=== PATIENT | male | born 1970 | race African-American/Black ===

== ENCOUNTER 2019-08-29 18:56 | Emergency (ER) | payer OTHER ==
[~2019-08-29] VITALS: Ht 180.3 cm; Wt 142.9 kg
[2019-08-29] MEDS ORDERED: Morphine Sulfate 4mg/ml Inj (IV USE ONLY) IVP ONE (20:00)
[2019-08-29] MEDS ORDERED: Omnipaque-300 100ml vial INJ PRN (20:00)
[2019-08-29 20:18] VITALS: BP 160/100
[2019-08-29 20:51] LABS: BASOPHILS % (AUTO) 0.6 % (0.0-2.0); EOSINOPHILS % (AUTO) 1.5 % (0.0-3.0); HEMATOCRIT 40.6 % (42.0-52.0); HEMOGLOBIN 14.1 G/DL (14.2-18.0); LYMPHOCYTES % (AUTO) 13.1 % (20.0-45.0); MEAN CORPUSCULAR VOLUME 83 FL (80-99); MONOCYTES % (AUTO) 11.5 % (1.0-10.0); NEUTROPHILS % (AUTO) 73.3 % (45.0-75.0); PLATELET COUNT 282 K/UL (150-450); RED BLOOD COUNT 4.91 M/UL (4.70-6.10); RED CELL DISTRIBUTION WIDTH 11.2 % (11.6-14.8)
[2019-08-29] MEDS ORDERED: Piperacillin/Tazobactam 3.375 GM in NS 110 ML IVPB ONE (21:00)
[2019-08-29 21:04] LABS: INR 0.9 (0.9-1.1)
[2019-08-29 21:05] LABS: ANION GAP 10 mmol/L (5-15); BLOOD UREA NITROGEN 12 mg/dL (7-18); CALCIUM 9.1 MG/DL (8.5-10.1); CARBON DIOXIDE 29 MMOL/L (21-32); CHLORIDE 102 MMOL/L (98-107); POTASSIUM 3.3 MMOL/L (3.5-5.1); SODIUM 141 MMOL/L (136-145)
[2019-08-29 21:15] LABS: ALANINE AMINOTRANSFERASE 29 U/L (12-78); ALBUMIN 3.8 G/DL (3.4-5.0); ALBUMIN/GLOBULIN RATIO 1.1 (1.0-2.7); ALKALINE PHOSPHATASE 64 U/L (46-116); ASPARTATE AMINO TRANSFERASE 17 U/L (15-37); BILIRUBIN,TOTAL 1.2 MG/DL (0.2-1.0)
[2019-08-29] MEDS ORDERED: LORazepam Inj 2mg/ml 1ml IV ONE (21:15)
[2019-08-29 21:21] LABS: BILIRUBIN,DIRECT 0.3 MG/DL (0.0-0.3)
--- NOTE | 2019-08-29 21:44 | Emergency Room Report ---
History of Present Illness General Chief Complaint: General Complaint Source: Patient (Harshad Tay MD) Present Illness HPI 49-year-old male presents ED for evaluation. Brought in by EMS from street. States he is having pain to his scrotal area and his legs. States that it is infected. States he has had a previous infection there. Patient is a poor historian. Unable to tell me how long he has had the pain there. Denies fevers or chills. States he has had a prior surgery to his scrotum. Pain is a 10 out of 10, sharp, nonradiating. No other aggravating relieving factors. Denies any other associated symptoms (Harshad Tay MD) Allergies: Coded Allergies: No Known Allergies (Unverified , 08/29/19) Patient History Past Medical History: DM, HTN, asthma, COPD Pertinent Family History: none Social History: Denies: smoking, alcohol use, drug use Immunizations: UTD Reviewed Nursing Documentation: PMH: Agreed; PSxH: Agreed (Harshad Tay MD) Nursing Documentation-PMH Past Medical History: No History, Except For Hx Hypertension: Yes Hx Asthma: Yes Hx COPD: Yes Hx Diabetes: Yes (Harshad Tay MD) Review of Systems All Other Systems: negative except mentioned in HPI (Harshad Tay MD) Physical Exam Vital Signs Date Time Temp Pulse Resp B/P (MAP) Pulse Ox O2 Delivery O2 Flow Rate FiO2 08/29/19 18:44 99.1 92 17 160/100 (120) 98 Room Air Sp02 EP Interpretation: reviewed, normal General Appearance: no apparent distress, alert, GCS 15, non-toxic, obese Head: normocephalic Eyes: bilateral eye normal inspection, bilateral eye PERRL ENT: normal ENT inspection Neck: normal inspection Respiratory: chest non-tender, lungs clear, normal breath sounds, speaking full sentences Cardiovascular #1: regular rate, rhythm, no edema Gastrointestinal: normal bowel sounds, non tender, soft, non-distended, no guarding, no rebound Rectal: deferred Genitourinary: other - scrotal tenderness, erythema Musculoskeletal: back normal, normal range of motion, gait/station normal, non- tender Neurologic: alert, motor strength/tone normal, oriented x3, sensory intact, responsive, speech normal Psychiatric: normal inspection Skin: other - erythema/induration to bialteral Lower extremities Lymphatic: normal inspection (Harshad Tay MD) Medical Decision Making ER Course Notified about mass in testicle Fax sent to hospital, patient was transferred to (Jhoan Hamilton MD) Last Vital Signs Date Time Temp Pulse Resp B/P (MAP) Pulse Ox O2 Delivery O2 Flow Rate FiO2 08/29/19 20:18 99.1 88 17 160/100 98 Room Air (Harshad Tay MD) Referrals: [facility] (PCP) Harshad Tay MD Aug 29, 2019 21:44 Jhoan Hamilton MD Aug 30, 2019 17:34
--- NOTE | 2019-08-29 21:53 | Diagnostic Imaging Report ---
Indications: Lateral testicular pain Technique: Grayscale and duplex images of the scrotum Comparison: Findings:The right testicle measures 3.9cm in length. It demonstrates normal echogenicity overall. However, there is a 5 mm hypoechoic area within the upper pole of the testicular parenchyma. Normal Doppler flow. Normal epididymis. There is a right-sided varicocele demonstrated. The left testicle measures 3.8 cm in length. It demonstrates normal echogenicity except for a few small calcifications and normal Doppler flow. Normal epididymis. . Is a large left varicocele. There is a small hydrocele Impression: 5 mm hypoechoic area within the upper pole of the right testicle. This is nonspecific, could represent a small focus of inflammation or neoplasm. Short interval follow-up sonography recommended. This finding was not described on the [facility] preliminary report, was phoned to Dr. Hamilton in the emergency room at the time of interpretation No acute abnormality Bilateral varicoceles Left hydrocele Nonsignificant calcifications in the left testicle Remaining findings are in agreement with the [facility] preliminary report
[2019-08-29 22:20] VITALS: BP 132/98
--- NOTE | 2019-08-29 23:11 | Diagnostic Imaging Report ---
Clinical Indication: Abdominal pain and scrotal pain Technique: No oral contrast utilized, per emergency room physician request IV administration nonionic contrast. Venous phase spiral acquisition obtained through the abdomen and pelvis. Multiplanar reconstructions were generated. Total dose length product 2937 mGycm. CTDIvol(s) 74 mGy. Dose reduction achieved using automated exposure control Comparison: none Findings: There is some image degradation due to motion artifact. What is apparently a very long venous stent extends from the left common femoral vein through the entirety of the left iliac venous system and into the inferior vena cava extending just above the renal vein orifices. This actually extends through an inferior vena cava filter. Inferior vena cava filter struts all extend well beyond the boundaries of the inferior vena cava, with one strut extending into the abdominal aorta. The inferior vena cava below the renal veins is markedly narrowed, and patency is indeterminate due to the presence of the stent Numerous enlarged veins are seen in the abdominal wall, presumably collateral channels related to chronic pelvic and inferior vena cava venous insufficiency. The appendix is normal. No evidence of colonic diverticulosis or diverticulitis. No small bowel distention. No free or loculated intraperitoneal gas or fluid is evident. The distal esophagus, stomach, duodenum are unremarkable. There is fat-containing umbilical hernia. This demonstrates stranding of the contained fat The liver, gallbladder, bile ducts, pancreas, spleen, adrenals, left kidney are unremarkable. The right kidney demonstrates multiple cysts. No renal or ureteral calculi, hydronephrosis, or hydroureter. No pelvic mass or adenopathy. There is evidence of a bilateral scrotal varicoceles. The bladder is distended The included lung bases demonstrate some groundglass opacity, probably mostly artifactual due to breathing artifact. The bones demonstrate a sclerotic focus in the right iliac bone, probably a bone island.. Impression: Long venous stent extending from left common femoral vein to the suprarenal inferior vena cava. Inferior vena cava filter with evidence of stress-induced extending well beyond the confines of the inferior vena cava including one into the aortic lumen. There is narrowing, likely chronic, of the inferior vena cava. Extensive abdominal wall collateral vessels, presumably related to the above. Umbilical hernia, containing only fat. Stranding of the fat within the hernia noted, the possibility of strangulation should be considered although is deemed unlikely No definite acute abnormality. Distended bladder Bilateral scrotal varicoceles This essentially agrees with the preliminary interpretation provided overnight by [facility]erad[facility] service, with some additional findings. The CT scanner at [facility] is accredited by the [employer] and the scans are performed using protocols designed to limit radiation exposure to as low as reasonably achievable to attain images of sufficient resolution adequate for diagnostic evaluation.
[2019-08-29 23:20] VITALS: BP 130/98
== END 2019-08-29 23:30 | disposition short-term general hospital (02) ==
LOC: EDBD 18:56 → EMR 21:21
DX: N50.9 Disorder of male genital organs, unspecified (principal); E11.9 Type 2 diabetes mellitus without complications; I10 Essential (primary) hypertension; J44.9 Chronic obstructive pulmonary disease, unspecified; E66.9 Obesity, unspecified; Z68.41 Body mass index [BMI] 40.0-44.9, adult
CPT/HCPCS: 36415; 74177; 76870; 80053; 82248; 82962; 83605; 83690; 85025; 85610; 85730; 86850; 86900; 86901; 87040; 96365; 96375; J2270; J2543; Q9967; Z7502; 99285

== ENCOUNTER 2019-09-11 23:28 | Emergency (ER) | payer OTHER ==
[~2019-09-11] VITALS: Ht 180.3 cm; Wt 142.9 kg
--- NOTE | 2019-09-11 23:29 | NUR ---
ED Nurse Note: Patient was BIBA RA 39 due to left leg pain 8/10 radiating to the knee and right leg pain 4/10. Pt VSS, NAD, denies SOB. Will continue to monitor patient.
--- NOTE | 2019-09-12 00:40 | NUR ---
Note gabe in EDM - 09/12/19 at 0059 by [email or web address] ED Nurse Note: XR at bedside with cath lab radiology technician.
--- NOTE | 2019-09-12 00:55 | NUR ---
ED Nurse Note: Patient is asleep. VSS, NAD. Will continue to monitor patient.
--- NOTE | 2019-09-12 00:59 | NUR ---
ED Nurse Note: XR at bedside with sheetmetal trades worker.
--- NOTE | 2019-09-12 01:31 | NUR ---
ED Nurse Note: ERMD at bedside.
--- NOTE | 2019-09-12 01:36 | Diagnostic Imaging Report ---
Indication: Left foot pain Technique: 3 views left foot Comparison: None Findings: There is hammertoe deformities second through fifth digits. No acute fractures. No dislocations. Joint spaces are preserved. Impression: No acute bony trauma This agrees with the preliminary interpretation provided overnight by [facility] service.
[2019-09-12] MEDS ORDERED: Furosemide 40mg tab ORAL ONE (01:45)
[2019-09-12 01:52] VITALS: BP 128/78
[2019-09-12] MEDS ORDERED: FUROSEMIDE40 MG ORAL (01:55)
--- NOTE | 2019-09-12 01:55 | Emergency Room Report ---
History of Present Illness General Chief Complaint: Lower Extremity Injury Source: Patient Present Illness HPI 49-year-old male history of COPD, presents with bilateral lower extremity swelling x1 week, patient during the interview falls back asleep, when patient is awake he states that he also has foot pain denies any aggravating leaving factors severity is mild, intermittent achy in nature, patient denies any fevers chills shortness of breath, patient states he has a history of COPD diabetes. Allergies: Coded Allergies: No Known Allergies (Unverified , 08/29/19) Patient History Past Medical History: see triage record Reviewed Nursing Documentation: PMH: Agreed; PSxH: Agreed Nursing Documentation-PMH Hx Hypertension: Yes Hx Asthma: Yes Hx COPD: Yes Hx Diabetes: Yes Review of Systems All Other Systems: negative except mentioned in HPI Physical Exam Vital Signs Date Time Temp Pulse Resp B/P (MAP) Pulse Ox O2 Delivery O2 Flow Rate FiO2 09/11/19 23:21 98.6 95 20 190/100 (130) 95 Room Air Sp02 EP Interpretation: reviewed, normal General Appearance: well appearing, no apparent distress, alert, other - Patient sleeping comfortably in bed Head: normocephalic, atraumatic Eyes: bilateral eye PERRL, bilateral eye EOMI ENT: uvula midline, moist mucus membranes Neck: supple, thyroid normal, supple/symm/no masses Respiratory: no respiratory distress, no retraction, wheezing - Mild Cardiovascular #1: normal peripheral pulses, regular rate, rhythm, no edema, no gallop, no murmur Gastrointestinal: non tender, soft, no guarding, no rebound Musculoskeletal: normal inspection, other - Bilateral lower extremity: 2+ PT DP , swelling of bilateral lower extremities, 2+ pedal edema Neurologic: alert, oriented x3 Psychiatric: mood/affect normal Skin: no rash, warm/dry Medical Decision Making Homeless Attestation I, The treating physician Dr. Hamilton, have assessed and agrees that patient is medically stable for discharge to an outpatient disposition. Diagnostic Impression: Primary Impression: Pedal edema ER Course 49-year-old male presents with bilateral pedal edema, most likely component of venous insufficiency versus mild overload, patient during exam continues to fall asleep, he is in no acute distress, he has mild wheezing Will provide patient with some Lasix, no emergent condition at this time Disposition home with return precautions Other X-Ray Diagnostic Results Other X-Ray Diagnostic Results : X-Ray ordered: Left foot # of Views/Limited Vs Complete: 3 View Indication: Swelling EP Interpretation: Yes Interpretation: no dislocation, no fractures Impression: No acute disease Electronically Signed by: Jhoan Hamilton MD Last Vital Signs Date Time Temp Pulse Resp B/P (MAP) Pulse Ox O2 Delivery O2 Flow Rate FiO2 09/11/19 23:21 98.6 95 20 190/100 (130) 95 Room Air Disposition: HOME, SELF-CARE Condition: Stable Scripts Furosemide* (LASIX*) 40 Mg Tablet 40 MG ORAL DAILY, #5 TAB Prov: Jhoan Hamilton MD 09/12/19 Referrals: [facility] (PCP) Patient Instructions: Edema, [id number] Additional Instructions: The patient was provided with discharge instructions, notified to follow-up with a primary care doctor and or specialist in the next 24-48 hours, and to return to the ED if they have worsening of their symptoms. Please note that this report is being documented using [employer] technology. This can lead to erroneous entry secondary to incorrect interpretation by the dictating instrument. Jhoan Hamilton MD Sep 12, 2019 01:55
[2019-09-12 02:30] VITALS: BP 132/78
--- NOTE | 2019-09-12 02:30 | NUR ---
ED Nurse Note: Patient sleeping, comfortable, NAD.
[2019-09-12 03:30] VITALS: BP 135/62
--- NOTE | 2019-09-12 03:30 | NUR ---
ED Nurse Note: Patient sleeping, comfortable, NAD.
--- NOTE | 2019-09-12 04:15 | NUR ---
ED Nurse Note: Patient sleeping, comfortable, NAD.
--- NOTE | 2019-09-12 04:30 | NUR ---
ER DISCHARGE NOTE: Patient is cleared to be discharged per ERMD, pt is aox4, on room air, with stable vital signs. pt was given dc and prescription instructions, pt was able to verbalize understanding, pt id band removed without complications. pt is able to ambulate with steady gait. pt took all belongings. Pt given nourishment.
[2019-09-12 04:38] VITALS: BP 132/64
--- NOTE | 2019-09-12 04:38 | NUR ---
Abdoulaye bernal in EDM - 09/12/19 at 0514 by [email or web address] ED Nurse Note: Patient sleeping, comfortable, NAD.
== END 2019-09-12 04:30 | disposition home or self-care (01) ==
LOC: EDBD 23:28 → EMR 09-12 00:22
DX: R60.0 Localized edema (principal); E11.9 Type 2 diabetes mellitus without complications; J44.9 Chronic obstructive pulmonary disease, unspecified; I10 Essential (primary) hypertension
CPT/HCPCS: 73630; Z7502; 99283

== ENCOUNTER 2020-06-28 18:12 | Emergency (ER) | payer OTHER ==
[~2020-06-28] VITALS: Ht 180.3 cm; Wt 154.2 kg
[~2020-06-28 18:12] MED LIST: FUROSEMIDE40 MG ORAL
[2020-06-28 18:26] VITALS: BP 174/96
--- NOTE | 2020-06-28 18:29 | NUR ---
ED Nurse Note:pt. was DEVORA from the street with abdominal hernia and pain, pt. is A/Ox4 ambulatory VSS, seen by ER
[2020-06-28] MEDS ORDERED: Omnipaque-300 100ml vial INJ PRN (18:30)
[2020-06-28] MEDS ORDERED: Albuterol/Ipratropium 3ml neb HHN ONE (18:30)
--- NOTE | 2020-06-28 18:51 | Emergency Room Report ---
History of Present Illness General Chief Complaint: Abdominal Pain Source: Patient Present Illness HPI Is a 49-year-old male brought in by EMS after increased abdominal pain. Patient reports that increased lower pain. States this been present for 2 days. Denies any vomiting. Reports of increased draining stool. Prior history of COPD. He states his legs have become more swollen. Previous CT imaging had showed some stenting to his lower extremities as well as IVC filter. Patient had gradual onset of symptoms. Previously reports having been placed on Coumadin. Had noticed increased welling gradual onset. Reports having obvious site of abdominal pain to the lower abdomen after working for short time. 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 Patient History Past Medical History: see triage record Reviewed Nursing Documentation: PMH: Agreed; PSxH: Agreed Nursing Documentation-PMH Past Medical History: No History, Except For Hx Hypertension: Yes Hx Asthma: Yes Hx COPD: Yes Hx Diabetes: Yes History Of Psychiatric Problem: Yes Review of Systems All Other Systems: negative except mentioned in HPI Physical Exam Vital Signs Date Time Temp Pulse Resp B/P (MAP) Pulse Ox O2 Delivery O2 Flow Rate FiO2 06/28/20 18:10 98.4 90 18 174/96 (122) 96 Room Air Sp02 EP Interpretation: reviewed, normal General Appearance: normal inspection, alert, GCS 15, non-toxic, mild distress, obese Head: atraumatic ENT: normal ENT inspection, hearing grossly normal, normal voice Neck: normal inspection, full range of motion, supple, no bony tend Respiratory: normal inspection, no retraction, wheezing Cardiovascular #1: regular rate, rhythm, edema - 3+ Gastrointestinal: normal inspection, normal bowel sounds, non tender, soft, no guarding, no hernia Genitourinary: no CVA tenderness Musculoskeletal: normal inspection, back normal, normal range of motion Neurologic: alert, motor strength/tone normal, aging department supervisor III-XII nml as tested, oriented x3, responsive, speech normal, normal inspection Psychiatric: normal inspection, judgement/insight normal, mood/affect normal Medical Decision Making Diagnostic Impression: Primary Impression: Deep venous thrombosis Additional Impression: COPD exacerbation ER Course Patient presented for abdominal pain. Differential diagnosis include was not limited to fecal impaction, urinary retention, gastroenteritis, appendicitis among others. Because of complexity of patient's case laboratory tests and imaging studies were ordered. Patient was noted to have initial complaint of abdominal pain however he does appear to be somewhat short of breath and has prior history of COPD. Coronavirus testing was ordered. He was given breathing treatment. Patient's lower extremities appear to be somewhat edematous. He was given IV Lasix.Patient was also given Lovenox after ultrasound showed deep venous thrombosis. Patient was noted to have IVC filter. He states he previously was taking Coumadin but had not been taking medications recently. Patient was discussed with Dr. Newsome who agreed to accept the patient as transfer to [facility]. Labs Test 06/28/20 18:30 White Blood Count 8.6 K/UL (4.8-10.8) Red Blood Count 4.68 M/UL (4.70-6.10) Hemoglobin 13.0 G/DL (14.2-18.0) Hematocrit 40.7 % (42.0-52.0) Mean Corpuscular Volume 87 FL (80-99) Mean Corpuscular Hemoglobin 27.8 PG (27.0-31.0) Mean Corpuscular Hemoglobin Concent 32.0 G/DL (32.0-36.0) Red Cell Distribution Width 14.3 % (11.6-14.8) Platelet Count 261 K/UL (150-450) Mean Platelet Volume 8.0 FL (6.5-10.1) Neutrophils (%) (Auto) 57.6 % (45.0-75.0) Lymphocytes (%) (Auto) 29.5 % (20.0-45.0) Monocytes (%) (Auto) 8.2 % (1.0-10.0) Eosinophils (%) (Auto) 3.7 % (0.0-3.0) Basophils (%) (Auto) 0.9 % (0.0-2.0) Prothrombin Time 9.9 SEC (9.30-11.50) Prothromb Time International Ratio 0.9 (0.9-1.1) Activated Partial Thromboplast Time 23 SEC (23-33) Sodium Level 140 MMOL/L (136-145) Potassium Level 4.4 MMOL/L (3.5-5.1) Chloride Level 106 MMOL/L (98-107) Carbon Dioxide Level 27 MMOL/L (21-32) Anion Gap 7 mmol/L (5-15) Blood Urea Nitrogen 7 mg/dL (7-18) Creatinine 1.1 MG/DL (0.55-1.30) Estimat Glomerular Filtration Rate > 60 mL/min (>60) Glucose Level 325 MG/DL (74-106) Calcium Level 9.4 MG/DL (8.5-10.1) Total Bilirubin 0.2 MG/DL (0.2-1.0) Aspartate Amino Transf (AST/SGOT) 17 U/L (15-37) Alanine Aminotransferase (ALT/SGPT) 28 U/L (12-78) Alkaline Phosphatase 67 U/L (46-116) Troponin I 0.000 ng/mL (0.000-0.056) Total Protein 6.7 G/DL (6.4-8.2) Albumin 3.5 G/DL (3.4-5.0) Globulin 3.2 g/dL Albumin/Globulin Ratio 1.1 (1.0-2.7) Lipase 154 U/L (73-393) EKG Diagnostic Results Rate: normal Rhythm: NSR ST Segments: no acute changes Last Vital Signs Date Time Temp Pulse Resp B/P (MAP) Pulse Ox O2 Delivery O2 Flow Rate FiO2 06/28/20 18:26 90 18 Room Air 06/28/20 18:26 98.4 174/96 96 Status: improved Disposition: SHORT-TERM HOSP Condition: Stable Avelino Steinberg MD Jun 28, 2020 18:51
--- NOTE | 2020-06-28 19:06 | NUR ---
ED Nurse Note:blood and covid swab sent to labs
--- NOTE | 2020-06-28 19:09 | NUR ---
ED Nurse Note: received report from Michelle TRUONG.
[2020-06-28 19:10] LABS: BASOPHILS % (AUTO) 0.9 % (0.0-2.0); EOSINOPHILS % (AUTO) 3.7 % (0.0-3.0); HEMATOCRIT 40.7 % (42.0-52.0); LYMPHOCYTES % (AUTO) 29.5 % (20.0-45.0); MEAN CORPUSCULAR VOLUME 87 FL (80-99); MONOCYTES % (AUTO) 8.2 % (1.0-10.0); NEUTROPHILS % (AUTO) 57.6 % (45.0-75.0); PLATELET COUNT 261 K/UL (150-450); RED BLOOD COUNT 4.68 M/UL (4.70-6.10); RED CELL DISTRIBUTION WIDTH 14.3 % (11.6-14.8); WHITE BLOOD COUNT 8.6 K/UL (4.8-10.8)
[2020-06-28 19:18] LABS: INR 0.9 (0.9-1.1)
[2020-06-28 19:19] LABS: ANION GAP 7 mmol/L (5-15); BLOOD UREA NITROGEN 7 mg/dL (7-18); CALCIUM 9.4 MG/DL (8.5-10.1); CARBON DIOXIDE 27 MMOL/L (21-32); CHLORIDE 106 MMOL/L (98-107); CREATININE 1.1 MG/DL (0.55-1.30); POTASSIUM 4.4 MMOL/L (3.5-5.1); SODIUM 140 MMOL/L (136-145)
--- NOTE | 2020-06-28 19:20 | NUR ---
ED Nurse Note: rt at bedside
[2020-06-28 19:24] LABS: ALANINE AMINOTRANSFERASE 28 U/L (12-78); ALBUMIN 3.5 G/DL (3.4-5.0); ALBUMIN/GLOBULIN RATIO 1.1 (1.0-2.7); ALKALINE PHOSPHATASE 67 U/L (46-116); ASPARTATE AMINO TRANSFERASE 17 U/L (15-37); BILIRUBIN,TOTAL 0.2 MG/DL (0.2-1.0)
--- NOTE | 2020-06-28 19:30 | NUR ---
ED Nurse Note: unable to provide urine at this time. will attempt to collect at a later time
--- NOTE | 2020-06-28 20:00 | NUR ---
ED Nurse Note: US at bedside
--- NOTE | 2020-06-28 20:35 | Diagnostic Imaging Report ---
EXAM: US Duplex Bilateral Lower Extremities Veins CLINICAL HISTORY: BEKAHLL TECHNIQUE: Real-time duplex ultrasound scan of the bilateral lower extremity veins integrating B-mode two-dimensional vascular structure, Doppler spectral analysis, color flow Doppler imaging and compression. COMPARISON: None. FINDINGS: Right deep veins: Intraluminal thrombus is demonstrated within the right mid superficial femoral vein, and demonstrates noncompressibility. The right popliteal is limited in evaluation due to the above. Left deep veins: Unremarkable. No DVT in the left common femoral, femoral, proximal deep femoral or popliteal veins. The veins demonstrate normal color flow, are normally compressible, with normal phasic flow and/or augmentation response. Soft tissues: Limited exam due to patient body habitus and superficial edema. No popliteal cyst. IMPRESSION: Limited overall exam as above. 1. Right deep venous thrombosis within the mid superficial femoral vein. Difficult to determine extent as the evaluation of the distal femoral vein and popliteal vein are limited. 2. No obvious deep venous thrombosis within the left lower extremity.
--- NOTE | 2020-06-28 20:37 | NUR ---
ED Nurse Note: pt went for ct
--- NOTE | 2020-06-28 21:23 | Diagnostic Imaging Report ---
EXAM: CT Abdomen and Pelvis With Intravenous Contrast CLINICAL HISTORY: ABD PAIN TECHNIQUE: Axial computed tomography images of the abdomen and pelvis with intravenous contrast. CTDI is 24.60 mGy and DLP is 1467.90 mGy-cm. One or more of the following dose reduction techniques were used: automated exposure control, adjustment of the mA and/or kV according to patient size, use of iterative reconstruction technique. COMPARISON: CT abdomen and pelvis dated 08/29/2019. FINDINGS: Lung bases: Unremarkable. No mass. No consolidation. ABDOMEN: Liver: Unremarkable. No mass. Gallbladder and bile ducts: Unremarkable. No calcified stones. No ductal dilation. Pancreas: Unremarkable. No mass. No ductal dilation. Spleen: Unremarkable. No splenomegaly. Adrenals: Unremarkable. No mass. Kidneys and ureters: A few incidental renal cysts, which require no further follow-up imaging. No hydronephrosis. Stomach and bowel: Unremarkable. No obstruction. No mucosal thickening. PELVIS: Appendix: No findings to suggest acute appendicitis. Bladder: Unremarkable. No mass. Reproductive: Unremarkable as visualized. ABDOMEN and PELVIS: Intraperitoneal space: Unremarkable. No free air. No significant fluid collection. Bones/joints: No acute fracture. No dislocation. Soft tissues: Anterior abdominal wall hernia with a fascial defect measuring approximately 1.9 cm. Vasculature: IVC filter present. Stent within the IVC extending into the left femoral vein. Superficial varicosities are present. No abdominal aortic aneurysm. Lymph nodes: Unremarkable. No enlarged lymph nodes. IMPRESSION: 1. No acute findings in the abdomen or pelvis. 2. Chronic findings as above.
[2020-06-28] MEDS ORDERED: Enoxaparin 120 mg inj SUBQ SCH ×2 (21:30→22:00)
[2020-06-28] MEDS ORDERED: Enoxaparin 30mg Inj SUBQ SCH (22:00)
[2020-06-28 22:47] VITALS: BP 113/76
--- NOTE | 2020-06-29 00:25 | NUR ---
ED Nurse Note: gave report to Jazzy RN
[2020-06-29 00:30] VITALS: BP 125/77
--- NOTE | 2020-06-29 00:30 | NUR ---
TRANSFER TO FLOOR: Patient transferred to [address] at [facility] via [facility] as ordered, per dr. Newsome. Report given to Jazzy TRUONG. Belongings sent with patient
--- NOTE | 2020-07-01 17:07 | Cardiology Report ---
APPROVED REPORT EKG Measurement Heart [id number] <Conclusion> Normal sinus rhythm Normal ECG
== END 2020-06-29 00:30 | disposition short-term general hospital (02) ==
LOC: EDBD 18:12 → EMR 18:45
DX: I82.411 Acute embolism and thrombosis of right femoral vein (principal); K46.9 Unspecified abdominal hernia without obstruction or gangrene; N28.1 Cyst of kidney, acquired
CPT/HCPCS: 36415; 74177; 80053; 83690; 84484; 85025; 85610; 85730; 93005; 93970; 94640; 96374; 96375; J1650; J1940; J2405; Q9965; U0002; Z7502; 99285; J7620